=== PATIENT | female | born 1940 | race African-American/Black ===

== ENCOUNTER 2018-10-20 23:28 | Emergency (ER) | payer OTHER ==
[~2018-10-20] VITALS: Ht 167.6 cm; Wt 81.6 kg
[2018-10-20] MEDS ORDERED: DEXTROSE (50%) 50ML SYRG IV ONE (23:33)
[2018-10-20] MEDS ORDERED: EPINEPHrine HCL 1 MG/10 ML SYRG IV ONE (23:33)
[2018-10-20] MEDS ORDERED: SODIUM BICARBONATE 8.4% INJ 50ML SYRINGE IV ONE (23:33)
[2018-10-20] MEDS ORDERED: DEXTROSE 50% SYRINGE 50 ML IV ONE ×2 (23:38→23:40)
[2018-10-20 23:54] VITALS: BP 0/0
== END 2018-10-21 03:32 | disposition expired ==
LOC: EDBD 23:28 → ER 23:32
DX: I46.9 Cardiac arrest, cause unspecified (principal); E11.9 Type 2 diabetes mellitus without complications; E78.5 Hyperlipidemia, unspecified; I10 Essential (primary) hypertension
CPT/HCPCS: 92950; 99291; J0171; J7042